=== PATIENT | female | born 1955 | race Two or more races ===

== ENCOUNTER → 2024-03-23 | Outpatient (CLI) | payer MEDICARE, BC, SELFPAY ==
[2024-03-23 12:20] LABS: Glucose Estimated Average 131 mg/dL (80-131); Hemoglobin A1C 6.2 % Hgb (4.8-6.0)
[2024-03-23 12:23] LABS: Alanine Aminotransferase 30 U/L (10-49); Albumin, Serum 4.3 gm/dL (3.4-4.8); Alkaline Phosphatase 132 U/L (46-116); Anion Gap 9 (7-16); Aspartate Amino Transferase 27 U/L (0-34); BUN/Creatinine Ratio 20 Ratio (12-20); Bilirubin,Total 1.7 mg/dL (0.3-1.2); Blood Urea Nitrogen 12 mg/dL (9-23); Calcium 9.8 mg/dL (8.3-10.6); Calcium (Corrected) 9.8 mg/dL (8.5-10.1); Carbon Dioxide 29.4 mMol/L (20.0-31.0); Chloride 103 mMol/L (98-107); Cholesterol 137 mg/dL (132-200); Creatinine (Component) 0.6 mg/dL (0.6-1.3); Globulin 2.2 gm/dL (2.3-3.5); Glucose 124 mg/dL (74-106); HDL Cholesterol 45 mg/dL (40-60); LDL Cholesterol,Calculated 48 mg/dL (0-130); Osmolality,Calculated 281 (275-295); Potassium 4.4 mMol/L (3.4-5.1); Sodium 141 mMol/L (136-145); Total Protein 6.5 gm/dL (5.7-8.2); Triglycerides 218 mg/dL (30-150); eGFR > 60 See Note
== END | disposition home or self-care (01) ==
LOC: COPL 11:13
PROVIDERS: PCP Family Medicine; Referring Provider Physician Assistant; Visit Provider Physician Assistant
DX: I10 Essential (primary) hypertension (principal); E78.5 Hyperlipidemia, unspecified; R73.01 Impaired fasting glucose
CPT/HCPCS: 36415; 80053; 80061; 83036

== ENCOUNTER → 2024-04-12 | Outpatient (CLI) | payer MEDICARE, BC, SELFPAY ==
[2024-04-17 06:37] LABS: Fecal Globin Result NOT DETECTED (NOT DETECTED)
== END | disposition home or self-care (01) ==
LOC: SLDO 15:40
PROVIDERS: PCP Physician Assistant; Referring Provider Physician Assistant; Visit Provider Physician Assistant
DX: I10 Essential (primary) hypertension (principal); E78.5 Hyperlipidemia, unspecified; R73.01 Impaired fasting glucose
CPT/HCPCS: 82274; G0328

== ENCOUNTER → 2024-10-10 | Outpatient (CLI) | payer MEDICARE, BC, SELFPAY ==
[2024-10-10 12:27] LABS: Basophils # (Auto) 0.0 Thou/mm3 (0.0-0.2); Basophils % (Auto) 1 % (0-2.5); Eosinophils # (Auto) 0.1 Thou/mm3 (0.0-0.5); Eosinophils % (Auto) 2 % (0-10); Hematocrit 41.5 % (36.0-46.0); Hemoglobin 14.1 g/dL (12.0-16.0); Immature Granulocytes Auto 0.03 Thou/mm3 (0.00-0.00); Lymphocytes # (Auto) 1.1 Thou/mm3 (1.0-4.8); Lymphocytes % (Auto) 22 % (10-50); Mean Corpuscular HGB Conc 34.0 g/dl (31.0-37.0); Mean Corpuscular Hemoglobin 31.2 pg (25.0-35.0); Mean Corpuscular Volume 92 fL (80-100); Monocytes # (Auto) 0.4 Thou/mm3 (0.0-0.8); Monocytes % (Auto) 7 % (0-12); Neutrophils # (Auto) 3.4 Thou/mm3 (1.8-7.7); Neutrophils % (Auto) 68 % (37-80); Nucleated Red Blood Cell # 0.00 Thou/mm3 (0.00-0.00); Nucleated Red Blood Cell % 0 /100 WBC (0); Platelet Count 445 Thou/mm3 (140-440); RDW Standard Deviation 43.6 fL (36.4-46.3); Red Blood Count 4.52 Miln/mm3 (4.00-5.20); White Blood Count 5.0 Thou/mm3 (3.6-11.0)
[2024-10-10 12:35] LABS: Glucose Estimated Average 126 mg/dL (80-131); Hemoglobin A1C 6.0 % Hgb (4.8-6.0)
[2024-10-10 12:39] LABS: Alanine Aminotransferase 23 U/L (10-49); Albumin, Serum 4.1 gm/dL (3.4-4.8); Albumin/Globulin Ratio 1.9 (1.2-2.2); Alkaline Phosphatase 127 U/L (46-116); Anion Gap 9 (7-16); Aspartate Amino Transferase 22 U/L (0-34); BUN/Creatinine Ratio 15 Ratio (12-20); Bilirubin,Total 1.6 mg/dL (0.3-1.2); Blood Urea Nitrogen 9 mg/dL (9-23); Calcium 9.3 mg/dL (8.3-10.6); Calcium (Corrected) 9.3 mg/dL (8.5-10.1); Carbon Dioxide 29.2 mMol/L (20.0-31.0); Cardiac Risk Estimate 2.7 RATIO (3.7-5.6); Chloride 107 mMol/L (98-107); Cholesterol 119 mg/dL (132-200); Creatinine (Component) 0.6 mg/dL (0.6-1.3); Globulin 2.2 gm/dL (2.3-3.5); Glucose 128 mg/dL (74-106); HDL Cholesterol 44 mg/dL (40-60); LDL Cholesterol,Calculated 40 mg/dL (0-130); Osmolality,Calculated 289 (275-295); Potassium 4.0 mMol/L (3.4-5.1); Sodium 145 mMol/L (136-145); Thyroid Stimulating Hormone 0.93 uIU/mL (0.55-4.78); Total Protein 6.3 gm/dL (5.7-8.2); Triglycerides 175 mg/dL (30-150); Vitamin B12 1235 pg/mL (211-911); Vitamin D 25 Hydroxy Total 44.8 ng/mL (7.3-40.2); eGFR > 60 See Note
[2024-10-10 12:56] LABS: Collection Type, Urine Clean Catch
[2024-10-10 13:16] LABS: Bilirubin,Urine Negative (Negative); Blood,Urine Negative (Negative); Clarity,Urine Clear (Clear/Hazy); Color,Urine Yellow (Lt Yel-Yel); Culture Indicated,Urine Not Indicated; Glucose, Urine Negative (Negative); Ketones,Urine Negative (Negative); Leukocyte Esterase,Urine Negative (Negative); Nitrite,Urine Negative (Negative); PH,Urine 6.5 (5.0-7.0); Protein,Urine Negative (Neg - Trace); RBC,Urine 1 /hpf (0-3); Specific Gravity,Urine 1.021 (1.001-1.035); Squamous Epithelial Cell,Urine 2 /hpf (0-5); Urobilinogen,Urine Negative mg/dL (0.0-1.0); WBC,Urine 2 /hpf (0-5)
== END | disposition home or self-care (01) ==
PROVIDERS: PCP Family Medicine; Referring Provider Family Medicine; Visit Provider Family Medicine
DX: I10 Essential (primary) hypertension (principal); D51.9 Vitamin B12 deficiency anemia, unspecified; E78.5 Hyperlipidemia, unspecified; R73.01 Impaired fasting glucose; E55.9 Vitamin D deficiency, unspecified
CPT/HCPCS: 36415; 80053; 80061; 81001; 82306; 82607; 83036; 84443; 85025